=== PATIENT | female | born 1985 | race American Indian/Alaskan Native ===

== ENCOUNTER 2018-03-07 06:31 | Day surgery (SDC) | payer MEDICAID ==
[2018-03-07] MEDS ORDERED: ANCEF/STERILE WATER 2 GM/20 ML 2 GM/20 ML SYRINGE IV NR (08:00)
[2018-03-07] MEDS ORDERED: DILAUDID IV PRN ×2 (08:09→09:23)
--- NOTE | 2018-03-07 08:09 | Anesthesia Day of Surgery ---
Anesthesia Day of Surgery - Day of Surgery Patient Examined: Yes Patient H&P Reviewed: Yes Patient is NPO: Yes
--- NOTE | 2018-03-07 08:09 | Anesthesia Consultation ---
Anesthesia Consult and Med Hx Date of service: 03/07/18 - Airway Anesthetic Teeth Evaluation: Good ROM Head & Neck: Adequate Mental/Hyoid Distance: Adequate Mallampati Class: Class II Intubation Access Assessment: Probably Good - Pulmonary Exam CTA: Yes - Cardiac Exam Cardiac Exam: RRR - Pre-Operative Health Status ASA Pre-Surgery Classification: ASA2 Proposed Anesthetic Plan: General - Pulmonary Hx Smoking: No Hx Asthma: No SOB: No - Cardiovascular System Hx Hypertension: No Hx Heart Attack/AMI: No - Central Nervous System Hx Seizures: No CVA: No - Gastrointestinal Hx Gastroesophageal Reflux Disease: No - Endocrine Hx Renal Disease: No Hx Liver Disease: No Hx Insulin Dependent Diabetes: No Hx Thyroid Disease: No - Other Systems Hx Alcohol Use: Yes (Occas) Hx Obesity: Yes - Additional Comments Anesthesia Medical History Comments: No prior anesthetic complications.
[2018-03-07] MEDS ORDERED: VERSED IV NR (08:15)
[2018-03-07] MEDS ORDERED: LACTATED RINGERS 1,000 ML IV SCH (08:16)
[2018-03-07] MEDS ORDERED: NEURONTIN PO NR (08:16)
[2018-03-07] MEDS ORDERED: XYLOCAINE MPF 2% ONE (08:52)
[2018-03-07] MEDS ORDERED: DIPRIVAN 10 MG/ML IV ONE (08:52)
[2018-03-07] MEDS ORDERED: DILAUDID ONE (08:53)
[2018-03-07] MEDS ORDERED: NACL BACTERIOSTATIC INFILTRATI ONE (08:54)
--- NOTE | 2018-03-07 09:04 | Short Stay Summary ---
Short Stay Documentation Date of service: 03/07/18 Narrative H&P: Pt is a 32-year-old black female LMP 02/01/2018 who presents for permanent sterilization - History Principal diagnosis: Desires permanent sterilization H&P: obtained from office Past Medical History: No medical history Past Surgical History: cholecystectomy, Other (breast surgery) Social history: no significant social history, single - Allergies and Medications Current Medications: Allergies No Known Allergies Allergy (Unverified 03/02/18 12:05) Home Medications Medication Instructions Recorded Confirmed Last Taken Type No Known Home Medications [No 03/02/18 03/02/18 Unknown History Reported Home Medications] Active Medications Celecoxib (Celebrex) 200 mg PO PREOP NR Stop: 03/07/18 12:00 Last Admin: 03/07/18 08:40 Dose: 200 mg Gabapentin (Neurontin) 300 mg PO PREOP NR Stop: 03/07/18 20:00 Last Admin: 03/07/18 08:40 Dose: 300 mg Hydromorphone HCl (Dilaudid) 0.5 mg IV Q10MIN PRN PRN Reason: Pain , Severe (7-10) Stop: 03/07/18 20:00 Cefazolin Sodium (Ancef/Sterile Water 2 Gm/20 Ml) 2 gm in 20 mls @ 80 mls/hr IV PREOP NR; Protocol Stop: 03/07/18 12:00 Lactated Ringer's (Lactated Ringers) 1,000 mls @ 75 mls/hr IV DIRECT ERWIN Midazolam HCl (Versed) 2 mg IV ONCE NR Stop: 03/07/18 12:00 - Physical exam General appearance: no acute distress Integumentary: no rash HEENT: Atraumatic Lungs: Clear to auscultation Breasts: deferred Heart: Regular rate Gastrointestinal: normal Female Genitourinary: deferred Rectal Exam: deferred Extremities: no ischemia, No edema Neurological: Normal gait, Normal speech - Brief post op/procedure progress note Date of procedure: 03/07/18 Pre-op diagnosis: Desires permanent sterilization Post-op diagnosis: same Procedure: Laparoscopic bilateral tubal ligation Anesthesia: GETA Findings: A normal uterus with normal tubes and ovaries bilaterally Surgeon: CATIE PAYNE Estimated blood loss: minimal Pathology: none Condition: stable - Hospital course Hospital course: Unremarkable. - Disposition Condition at discharge: Good Disposition: DC-01 TO HOME OR SELFCARE - Discharge Diagnoses (1) Sterilization Status: Resolved Short Stay Discharge Plan Activity: no restrictions Diet: regular Wound: open to air, keep clean and dry Follow up with: NELLA MEJIA MD [Primary Care Provider] - 7 Days CATIE PAYNE MD [Staff Physician] - 14 Days Prescriptions: HYDROcodone/APAP 5-325 [[place] 5/325] 1 each PO Q6HR PRN #30 tablet PRN Reason: Pain
[2018-03-07 09:17] LABS: Hematocrit 39.6 % (30.3-42.9)
[2018-03-07] MEDS ORDERED: TORADOL IV PRN (09:23)
[2018-03-07] MEDS ORDERED: ZOFRAN IV PRN (09:23)
[2018-03-07] MEDS ORDERED: TYLENOL PO PRN (09:23)
[2018-03-07] MEDS ORDERED: MARCAINE-EPI 0.5%-1:200,000 INFILTRATI ONE (09:26)
[2018-03-07] MEDS ORDERED: NACL 0.9% IR ONE (09:26)
[2018-03-07] MEDS ORDERED: DECADRON ONE (10:00)
[2018-03-07] MEDS ORDERED: ZOFRAN ONE (10:00)
[2018-03-07] MEDS ORDERED: ZEMURON IV ONE (10:00)
--- NOTE | 2018-03-07 10:31 | Operative Report ---
Operative Report Operative Report: PREOPERATIVE DIAGNOSIS: Desires permanent sterilization POSTOPERATIVE DIAGNOSIS: Same OPERATIVE PROCEDURE: Laparoscopic bilateral tubal ligation. SURGEON: Santo Chandler MD ANESTHESIA: Gen. endotracheal intubation ANESTHESIOLOGIST: Dr. Martinez ESTIMATED BLOOD LOSS: Minimal less than 10 mL's FINDINGS: Normal uterus with normal tubes and ovaries bilaterally COMPLICATIONS: None COUNTS: Correct x3. PROCEDURE: After the patient was correctly identified and after general anesthesia was administered, the patient was prepped and draped in usual sterile fashion and placed in dorsal lithotomy position. First, the bladder was emptied using a straight catheter. Next, a speculum was placed in the vaginal vault and the anterior lip of the cervix was grasped using a single- tooth tenaculum. The uterine manipulator was then placed and the tenaculum and speculum were removed. Attention was then turned to the abdomen where first a periumbilical incision was made using a skin knife, and the Optiview trocar was inserted under direct visualization. After an adequate amount of abdominal insufflation, visualization of the pelvic organs found the uterus to be normal, and the tubes and ovaries to be normal bilaterally. Next, the left fallopian tube was grasped using the Kleppingers, and after identifying the fimbriated end of the left tube, this tube was cauterized in 3 continuous [address] along the proximal portion of the left tube. The same procedure was performed on the right fallopian tube after first identifying the fimbriated end of the right tube. This tube was also cauterized in 3 continuous places along the proximal portion of the right tube. At this point, the procedure was then considered complete. All instruments were removed from the abdomen. The abdomen was deflated and the periumbilical incision was closed using 0 Vicryl suture in a [id number] configuration on the fascia, followed by 4-0 Monocryl suture in sub-cuticular fashion on the skin. The incision was also infiltrated using 0.5% Marcaine solution. The uterine manipulator was removed. The patient tolerated the procedure well and was transferred to recovery room stable condition.
--- NOTE | 2018-03-07 12:25 | Post Anesthesia Evaluation ---
- Post Anesthesia Evaluation Patient Participated: Yes Airway Patent: Yes Stable Respiratory Function: Yes Nausea/Vomiting: No Temp > 96.8F: Yes Pain Manageable: Yes Adequeate Hydration: Yes Anesthesia Complications: No
[2018-03-07 15:40] VITALS: BP 105/61
== END 2018-03-07 13:05 | disposition home or self-care (01) ==
LOC: OR 06:31
PROVIDERS: ATTEND Obstetrics & Gynecology
DX: Z30.2 Encounter for sterilization (principal); G43.909 Migraine, unspecified, not intractable, without status migrainosus; E66.9 Obesity, unspecified; Z68.39 Body mass index [BMI] 39.0-39.9, adult; Z90.49 Acquired absence of other specified parts of digestive tract; Z98.890 Other specified postprocedural states; Z72.89 Other problems related to lifestyle
CPT/HCPCS: 36415; 58670; 81025; 85014; 85018; J0690; J1100; J1170; J1885; J2250; J2405; J2704; J7120

== ENCOUNTER 2018-08-22 21:35 | Emergency (ER) | payer MEDICAID, OTHER ==
[2018-08-22] MEDS ORDERED: TYLENOL ONE (22:43)
[2018-08-22] MEDS ORDERED: TYLENOL PO ONE (22:45)
--- NOTE | 2018-08-22 22:48 | Emergency Department Report ---
Blank Doc - Documentation Documentation: This is a 33 y.o. female presents with pain to left s/p fall at home. Patient states she fell fro 2 steps in home. She felt and heard a pop to left knee. Denies hitting head. Reports unable to apply weight to LLE. Denies loc, hitting head, chest pain, numbness or tingling. Ordered x-ray of left knee. Given tylenol 650 mg po once. Fast track for further evaluation.
--- NOTE | 2018-08-22 23:59 | XRay Report ---
PROCEDURE: XR KNEE 3V LT TECHNIQUE: 3 views of the left knee worsened. HISTORY: left knee pain COMPARISONS: None FINDINGS: There is no evidence of acute fracture or joint effusion. All 3 compartments are well-maintained. The re is soft tissue calcification abutting the cortex of the medial femoral condyle suggesting remote l igamentous injury. IMPRESSION: No evidence of acute injury.. This document is electronically signed by Mingo Calero MD., August 22 2018 11:56:54 PM ET
[2018-08-23 02:41] VITALS: BP 116/55
[2018-08-23] MEDS ORDERED: IBUPROFEN PO ONE (02:46)
[2018-08-23] MEDS ORDERED: IBUPROFEN ONE (02:47)
== END 2018-08-22 23:00 | disposition left against medical advice (07) ==
LOC: ED 21:35
DX: M25.562 Pain in left knee (principal); Z53.21 Procedure and treatment not carried out due to patient leaving prior to being seen by health care provider